=== PATIENT | female | born 1930 | race Caucasian/White ===

== ENCOUNTER 2021-11-19 20:34 | Emergency (ER) | payer MEDICARE, OTHER ==
[~2021-11-19] VITALS: Ht 165.1 cm; Wt 63.5 kg
[~2021-11-19 20:34] MED LIST: EPINEPHRINE 1:10,000 1 MG/10 ML DISP.SYRIN ONE; SODIUM BICARBONATE 8.4% 50 MEQ/50 ML DISP.SYRIN IV ONE
--- NOTE | 2021-11-19 20:36 | NUR ---
Dr. Trujillo at bedside for MSE.
[2021-11-19] MEDS ORDERED: IV NS 1000 ML 1,000 ML IV ONE ×3 (20:45→22:15)
--- NOTE | 2021-11-19 21:05 | NUR ---
Xray at bedside.
[2021-11-19] MEDS ORDERED: ROSU10TA2 PO (21:11)
[2021-11-19] MEDS ORDERED: MEMA10TA PO (21:11)
[2021-11-19] MEDS ORDERED: CARV6.252 PO (21:11)
[2021-11-19] MEDS ORDERED: ESCI10TA PO (21:11)
[2021-11-19] MEDS ORDERED: MULT-594 PO (21:11)
[2021-11-19] MEDS ORDERED: LEVO25TA2 PO (21:11)
[2021-11-19] MEDS ORDERED: BIOT1CAP3 PO (21:11)
--- NOTE | 2021-11-19 21:20 | NUR ---
Family states they would prefer a female to insert the monzon catheter, Racing Car Driver made aware.
[2021-11-19] MEDS ORDERED: PIPERACILLIN SODIUM/TAZOBACTAM 3.375 G in IV DEXTROSE 5% 50 ML IV ONE (21:30)
[2021-11-19] MEDS ORDERED: PIPERACILLIN/TAZOBACTAM/D5W 50 ML IV ONE (21:32)
[2021-11-19] MEDS ORDERED: diphenhydrAMINE 50 MG/1 ML VIAL ONE (21:42)
[2021-11-19] MEDS ORDERED: LORAZEPAM 2 MG/1 ML VIAL ONE (21:42)
[2021-11-19] MEDS ORDERED: HALOPERIDOL LACTATE 5 MG/1 ML VIAL ONE (21:42)
[2021-11-19] MEDS ORDERED: HALOPERIDOL LACTATE 5 MG/1 ML VIAL IV ONE (21:45)
[2021-11-19] MEDS ORDERED: LORAZEPAM 2 MG/1 ML VIAL IV ONE (21:45)
[2021-11-19] MEDS ORDERED: diphenhydrAMINE 50 MG/1 ML VIAL IV ONE (21:45)
--- NOTE | 2021-11-19 21:57 | NUR ---
Pt out of ER for CT.
[2021-11-19 21:59] LABS: BILIRUBIN,DIRECT 0.4 mg/dL (0.0-0.2); BILIRUBIN,TOTAL 1.4 mg/dL (0.2-1.0); CARBON DIOXIDE 22 mmol/L (21-32); CHLORIDE 98 mmol/L (98-107); CREATININE 0.7 mg/dL (0.6-1.3); GLUCOSE 225 mg/dL (74-106); TOTAL PROTEIN, SERUM 8.1 g/dL (6.4-8.2); UREA NITROGEN, BLOOD 36 mg/dL (7-18)
[2021-11-19 22:10] LABS: THYROID STIMULATING HORMONE 0.942 mIU/mL (0.358-3.740)
[2021-11-19 22:12] LABS: POTASSIUM 6.3 mmol/L (3.5-5.1)
[2021-11-19 22:21] LABS: *BILIRUBIN,URIN 3+ (NEGATIVE); *BLOOD, URINE 3+ (NEGATIVE); *CLARITY,URINE SLIGHTLY CLOUDY (CLEAR); *COLOR,URINE RED (YELLOW); *KETONES,URINE 2+ (NEGATIVE); *UROBILINOGEN,URINE >=8.0 E.U./dl (NORMAL); PH,URINE 8.5 (5.0-8.0); UGLUCOSE TRACE (NEGATIVE)
--- NOTE | 2021-11-19 22:25 | NUR ---
Pt returning from CT, broadband technician noticed pt not breathing, [employer] Called.
--- NOTE | 2021-11-19 22:30 | NUR ---
Pt intubated by Dr. Trujillo.
[2021-11-19 22:39] LABS: HEMATOCRIT 24.7 % (31.2-41.9); MEAN CORPUSCULAR HEMOGLOBIN 30.7 uug (24.7-32.8); MEAN CORPUSCULAR VOLUME 95.1 fL (75.5-95.3); PLATELET COUNT (AUTO) 139 K/uL (179-408)
--- NOTE | 2021-11-19 22:46 | NUR ---
Patient at 2245, pronounced by Dr. Trujillo.
[2021-11-19 22:48] LABS: NITRITE, URINE NEGATIVE (NEGATIVE)
[2021-11-19 22:49] LABS: ALANINE AMINOTRANSFERASE 396 U/L (14-59); ALKALINE PHOSPHATASE 177 U/L (50-136); ASPARTATE AMINOTRANSFERASE 1090 U/L (15-37)
[2021-11-19 22:51] LABS: BACTERIA,URINE NONE SEEN /HPF (NONE SEEN); RBC,URINE TNTC /HPF (0-3); SQUAMOUS EPITHELIAL CELL,UR MODERATE /HPF (NONE SEEN)
[2021-11-19 23:03] LABS: MAGNESIUM 2.3 mg/dL (1.8-2.4)
--- NOTE | 2021-11-19 23:39 | NUR ---
[facility] spoke with Officer Александр, not a data analysis manager's case, no case number needed.
--- NOTE | 2021-11-19 23:40 | NUR ---
Called [facility] to report , instructed by swiss type screw machine operator to call back in 10-15 minutes due to busy lines.
--- NOTE | 2021-11-19 23:50 | NUR ---
Called [facility], no one available to take report of at this time, will call back.
--- NOTE | 2021-11-20 00:15 | NUR ---
Called [facility], not currently available to picker feeder patient, family does not have mortuary arrangements.
--- NOTE | 2021-11-20 00:23 | NUR ---
Received call back from [facility], spoke with Med, patient not eligible for organ donation and body can be released, case#[id number].
[2021-11-20 00:59] LABS: BAND % (MANUAL) 20 % (0-10); EOSINOPHILS % (MANUAL) 2 % (0-8); LYMPHOCYTES % (MANUAL) 26 % (20-40); METAMYELOCYTES % 1 % (0-1); MONOCYTES % (MANUAL) 2 % (2-10); NEUTROPHILS % (MANUAL) 49 % (42-75)
--- NOTE | 2021-11-20 01:50 | NUR ---
[facility] Mortuary arrived to to transport body to [facility].
[2021-11-20 01:57] VITALS: BP 0/0
== END 2021-11-20 01:57 ==
LOC: ER 20:36
DX: A41.9 Sepsis, unspecified organism (principal); K80.00 Calculus of gallbladder with acute cholecystitis without obstruction; R65.20 Severe sepsis without septic shock; D65 Disseminated intravascular coagulation [defibrination syndrome]; K75.0 Abscess of liver; D72.823 Leukemoid reaction; I45.2 Bifascicular block; K56.41 Fecal impaction; E78.5 Hyperlipidemia, unspecified; E03.9 Hypothyroidism, unspecified; F03.90 Unspecified dementia, unspecified severity, without behavioral disturbance, psychotic disturbance, mood disturbance, and anxiety; Z79.899 Other long term (current) drug therapy; D64.9 Anemia, unspecified; R77.8 Other specified abnormalities of plasma proteins; Z20.822 Contact with and (suspected) exposure to COVID-19
CPT/HCPCS: 31500; 36415; 71045; 74018; 74176; 80048; 80076; 81001; 82607; 83605; 83735; 83880; 84145; 84443; 84484; 85007; 85025; 85379; 85730; 87040 ×2; 87076; 87086; 87426; 92950; 93005; 96365; 96375; 99291; J0171 ×3; J1200; J1630; J2060; J2543; J3490 ×2; J7040; 70030-TC; A4663; C1758